=== PATIENT | male | born 1985 | race Caucasian/White ===

== ENCOUNTER 2020-11-09 03:28 | Emergency (ER) | payer BC ==
[~2020-11-09 03:28] MED LIST: NORCO 7.5-3251 EACH PO; TORADOL 10 MG T10 MG PO; ZOFRAN4 MG PO
[2020-11-09 04:23] LABS: HEMOGLOBIN 18.3 gm/dl (14.0-17.5); RED BLOOD COUNT 5.32 M/UL (4.20-5.50); WHITE BLOOD COUNT 5.8 K/UL (4.5-11.0)
[2020-11-09 04:55] LABS: BUN/CREATININE RATIO 7 (0-10)
== END 2020-11-09 06:13 | disposition home or self-care (01) ==
LOC: ER1 03:28
PROVIDERS: Emergency Medicine
DX: J20.9 Acute bronchitis, unspecified (principal); J06.9 Acute upper respiratory infection, unspecified; I10 Essential (primary) hypertension; Z90.89 Acquired absence of other organs; Z20.822 Contact with and (suspected) exposure to COVID-19
CPT/HCPCS: 71045; 80053; 85025; 85379; 99285; U0002

== ENCOUNTER 2021-06-14 18:11 | Emergency (ER) | payer OTHER | END 2021-06-14 18:27 | disposition left against medical advice (07) | LOC: ER1 18:11 | DX: Z53.21 Procedure and treatment not carried out due to patient leaving prior to being seen by health care provider (principal) ==

== ENCOUNTER → 2021-10-04 | Outpatient (CLI) | payer BC | LOC: CT 11:30 | DX: R10.30 Lower abdominal pain, unspecified (principal); K44.9 Diaphragmatic hernia without obstruction or gangrene | CPT/HCPCS: Q9967 ==